=== PATIENT | female | born 1950 | race Caucasian/White ===

== ENCOUNTER 2017-07-28 21:00 | Emergency (ER) | payer MEDICARE, BC ==
[2017-07-28 21:20] VITALS: BP 138/87
[2017-07-28] MEDS ORDERED: Sodium Chloride 0.9% 1,000 ML IV SCH (22:00)
--- NOTE | 2017-07-28 22:00 | EDM.PDOC ---
ED HPI GENERAL MEDICAL PROBLEM - General Chief Complaint: Chest Pain Stated Complaint: CHEST PAIN Time Seen by Provider: 07/28/17 21:37 Source of Information: Reports: Patient History Limitations: Reports: No Limitations - History of Present Illness INITIAL COMMENTS - FREE TEXT/NARRATIVE: The patient states that she has felt exhausted, along with left chest tightness for over 2 months. She has had sharp left chest pain, belching, decreased appetite, entire back pain, generalized weakness, lightheadedness, and frequent bowel movements over the past 2 days. She felt diaphoretic and anxious today. No recent fever. No recent dyspnea at rest, although she has had dyspnea on exertion for 2 months. She is not orthopneic. No recent cough. She has nausea when she belches, but has not had any emesis. No urinary symptoms. No recent rash. No prior similar symptoms. Of note, the patient has a history of a pulmonary embolus, is status post an IVC filter, and is on Xarelto. A hypercoagulable workup was negative. She states that her sister has an unnamed hypercoagulable condition, as well. The patient's PCP is Dr. Ortiz. Middle Chest Pain Score (Numeric/FACES): 4 - Related Data Allergies Allergy/AdvReac Type Severity Reaction Status Date / Time Cephalosporins Allergy Hives Verified 07/28/17 21:10 Sulfa (Sulfonamide Allergy Hives Verified 07/28/17 21:10 Antibiotics) Home Meds: Home Meds oxyCODONE HCl/Acetaminophen [Percocet 5-325 mg Tablet] 1 - 2 each PO Q4H PRN # 40 tablet 08/08/15 [Rx] Cyanocobalamin/FA/Pyridoxine [Folbic Tablet] 1 tab PO DAILY 07/28/17 [History] DULoxetine [Cymbalta] 60 mg PO DAILY 07/28/17 [History] Losartan [Cozaar] 50 mg PO DAILY 07/28/17 [History] Omeprazole 20 mg PO DAILY 07/28/17 [History] Propranolol [Inderal] 20 mg PO DAILY 07/28/17 [History] traZODone 50 mg PO BEDTIME 07/28/17 [History] Past Medical History HEENT History: Reports: Impaired Vision Cardiovascular History: Reports: Blood Clots/VTE/DVT, High Cholesterol, Hypertension Respiratory History: Reports: PE Gastrointestinal History: Reports: GERD 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: Musculoskeletal History: Reports: Arthritis, Back Pain, Chronic, Osteoporosis Neurological History: Reports: Migraines Psychiatric History: Reports: Anxiety, Depression Hematologic History: Reports: Other (See Below) (Hypercoagulopathy) - Infectious Disease History Infectious Disease History: Reports: Chicken Pox, Measles, Mumps, Shingles - Past Surgical History Cardiovascular Surgical History: Reports: Vascular Surgery (IVC filter 2004) GI Surgical History: Reports: Appendectomy, Colonoscopy, EGD Neurological Surgical History: Reports: Lumbar Spine (L4 kyphoplasty) Social & Family History - Family History Family Medical History: Noncontributory - Tobacco Use Smoking Status *Q: Never Smoker - Caffeine Use Caffeine Use: Reports: Soda - Recreational Drug Use Recreational Drug Use: No - Living Situation & Occupation Occupation: Employed ED ROS GENERAL - Review of Systems Review Of Systems: ROS reveals no pertinent complaints other than HPI. ED EXAM, GENERAL - Physical Exam Exam: See Below Exam Limited By: No Limitations General Appearance: Alert, WD/WN, No Apparent Distress Eye Exam: Bilateral Eye: Normal Inspection Ears: Normal External Exam, Hearing Grossly Normal Nose: Normal Inspection, No Blood Throat/Mouth: Normal Inspection, Normal Lips, Normal Voice, No Airway Compromise Head: Atraumatic, Normocephalic Neck: Normal Inspection, Full Range of Motion Respiratory/Chest: No Respiratory Distress, Lungs Clear, Normal Breath Sounds, No Accessory Muscle Use Cardiovascular: Normal Peripheral Pulses, Regular Rate, Rhythm, No Gallop, No JVD, No Murmur, No Rub Peripheral Pulses: 4+: Radial (L), Radial (R) GI/Abdominal: Normal Bowel Sounds, Soft, Non-Tender, No Organomegaly, No Distention, No Abnormal Bruit, No Mass (Female) Exam: Deferred Rectal (Female) Exam: Deferred Back Exam: Normal Inspection, Full Range of Motion, NT Extremities: Normal Inspection, Normal Range of Motion, No Pedal Edema, Normal Capillary Refill Neurological: Alert, Oriented, Normal Cognition, No Motor/Sensory Deficits Psychiatric: Normal Affect Skin Exam: Warm, Dry, Intact, Normal Color, No Rash EKG INTERPRETATION EKG Date: 07/28/17 Time: 21:46 Rhythm: NSR Rate (Beats/Min): 76 [place]: Normal P-Wave: Present QRS: Normal ST-T: Normal QT: Normal Comparison: NA - No Prior EKG Course - Vital Signs Last Recorded V/S: Last Vital Signs Temp 36.8 C 07/28/17 21:15 Pulse 77 07/28/17 21:15 Resp 16 07/28/17 21:15 BP 138/87 07/28/17 21:15 Pulse Ox 97 07/28/17 21:15 Orthostatic Blood Pressure [ 149/82 Standing] Orthostatic Blood Pressure [ 150/87 Sitting] Orthostatic Blood Pressure [ 137/76 Supine] - Orders/Labs/Meds Orders: Active Orders 24 hr Category Date Time Status EKG Documentation Completion [RC] STAT Care 07/28/17 21:45 Active Orthostatic Vital Signs [RC] STAT Care 07/28/17 21:56 Active Peripheral IV Care [RC] . DIRECTED Care 07/28/17 21:45 Active Ang Chest [CT] Stat Exams 07/28/17 21:55 Taken Chest 2V [CR] Stat Exams 07/28/17 21:53 Taken Peripheral IV Insertion Adult [OM.PC] Stat Oth 07/28/17 21:43 Ordered Labs: Laboratory Tests 07/28/17 07/28/17 07/28/17 Range/Units 22:00 22:00 22:00 WBC 4.12 (3.98-10.04) K/mm3 RBC 4.53 (3.98-5.22) M/mm3 Hgb 13.9 (11.2-15.7) gm/L Hct 42.7 (34.1-44.9) % MCV 94.3 (79.4-94.8) fl MCH 30.7 (25.6-32.2) pg MCHC 32.6 (32.2-35.5) g/dl RDW Std Deviation 46.8 H (36.4-46.3) fL Plt Count 141 L (182-369) K/mm3 MPV 8.2 L (9.4-12.3) fl Neutrophils % (Manual) 63 H (40-60) % Band Neutrophils % 0 (0-10) % Lymphocytes % (Manual) 30 (20-40) % Atypical Lymphs % 0 % Monocytes % (Manual) 6 (2-10) % Eosinophils % (Manual) 0 L (0.7-5.8) % Basophils % (Manual) 1 (0.1-1.2) Platelet Estimate Adequate RBC Morph Comment Normal Sodium 141 (136-145) mEq/L Potassium 3.5 (3.5-5.1) mEq/L Chloride 106 (98-107) mEq/L Carbon Dioxide 25 (21-32) mEq/L Anion Gap 12.5 (5-15) BUN 10 (7-18) mg/dL Creatinine 0.7 (0.55-1.02) mg/dL Est Cr Clr Drug Dosing 62.74 mL/min Estimated GFR (MDRD) > 60 (>60) mL/min BUN/Creatinine Ratio 14.3 (14-18) Glucose 123 H (80-115) mg/dL Calcium 8.4 L (8.5-10.1) mg/dL Magnesium 2.3 (1.8-2.4) mg/dl Total Bilirubin 0.3 (0.2-1.0) mg/dL AST 28 (15-37) U/L ALT 24 (14-59) U/L Alkaline Phosphatase 121 H (46-116) U/L Troponin I < 0.017 (0.00-0.056) ng/mL Total Protein 7.2 (6.4-8.2) g/dl Albumin 3.7 (3.4-5.0) g/dl Globulin 3.5 gm/dL Albumin/Globulin Ratio 1.1 (1-2) TSH 3rd Generation 1.889 (0.358-3.74) uIU/mL Urine Color (Yellow) Urine Appearance (Clear) Urine pH (5.0-8.0) Ur Specific [place] (1.005-1.030) Urine Protein (Negative) Urine Glucose (UA) (Negative) Urine Ketones (Negative) Urine Occult Blood (Negative) Urine Nitrite (Negative) Urine Bilirubin (Negative) Urine Urobilinogen (0.2-1.0) Ur Leukocyte Esterase (Negative) Urine RBC (0-5) /hpf Urine WBC (0-5) /hpf Ur Epithelial Cells (0-5) /hpf Urine Bacteria (FEW) /hpf Urine Mucus (FEW) /hpf 07/28/ Range/Units 23:25 WBC (3.98-10.04) K/mm3 RBC (3.98-5.22) M/mm3 Hgb (11.2-15.7) gm/L Hct (34.1-44.9) % MCV (79.4-94.8) fl MCH (25.6-32.2) pg MCHC (32.2-35.5) g/dl RDW Std Deviation (36.4-46.3) fL Plt Count (182-369) K/mm3 MPV (9.4-12.3) fl Neutrophils % (Manual) (40-60) % Band Neutrophils % (0-10) % Lymphocytes % (Manual) (20-40) % Atypical Lymphs % % Monocytes % (Manual) (2-10) % Eosinophils % (Manual) (0.7-5.8) % Basophils % (Manual) (0.1-1.2) Platelet Estimate RBC Morph Comment Sodium (136-145) mEq/L Potassium (3.5-5.1) mEq/L Chloride (98-107) mEq/L Carbon Dioxide (21-32) mEq/L Anion Gap (5-15) BUN (7-18) mg/dL Creatinine (0.55-1.02) mg/dL Est Cr Clr Drug Dosing mL/min Estimated GFR (MDRD) (>60) mL/min BUN/Creatinine Ratio (14-18) Glucose (80-115) mg/dL Calcium (8.5-10.1) mg/dL Magnesium (1.8-2.4) mg/dl Total Bilirubin (0.2-1.0) mg/dL AST (15-37) U/L ALT (14-59) U/L Alkaline Phosphatase (46-116) U/L Troponin I (0.00-0.056) ng/mL Total Protein (6.4-8.2) g/dl Albumin (3.4-5.0) g/dl Globulin gm/dL Albumin/Globulin Ratio (1-2) TSH 3rd Generation (0.358-3.74) uIU/mL Urine Color Yellow (Yellow) Urine Appearance Clear (Clear) Urine pH 5.5 (5.0-8.0) Ur Specific [place] 1.010 (1.005-1.030) Urine Protein Trace H (Negative) Urine Glucose (UA) Negative (Negative) Urine Ketones Negative (Negative) Urine Occult Blood Negative (Negative) Urine Nitrite Negative (Negative) Urine Bilirubin Negative (Negative) Urine Urobilinogen 0.2 (0.2-1.0) Ur Leukocyte Esterase Negative (Negative) Urine RBC 0-5 (0-5) /hpf Urine WBC 0-5 (0-5) /hpf Ur Epithelial Cells 0-5 (0-5) /hpf Urine Bacteria Rare (FEW) /hpf Urine Mucus Many H (FEW) /hpf Meds: Medications Discontinued Medications Generic Name Dose Route Start Last Admin Trade Name Freq PRN Reason Stop Dose Admin Sodium Chloride 1,000 mls @ 150 mls/hr 07/28/17 22:00 07/28/17 22:05 Normal Saline IV 150 mls/hr ASDIRECTED YENIFER Administration Sodium Chloride 100 mls @ 75 mls/hr 07/28/17 22:30 Normal Saline IV ASDIRECTED YENIFER Iopamidol 100 ml 07/28/17 22:23 07/28/17 22:45 Isovue-370 (76%) IVPUSH 07/28/17 22:24 100 ml ONETIME ONE Administration Sodium Chloride 10 ml 07/28/17 21:43 07/28/17 22:45 Saline Flush FLUSH 10 ml ASDIRECTED PRN Administration Keep Vein Open - Re-Assessments/Exams Free Text/Narrative Re-Assessment/Exam: 07/29/17 00:01 Two-view chest radiograph appears to be grossly normal. Cardiac silhouette is within normal limits. No pulmonary vascular congestion. No pleural effusions. No focal infiltrate. No pneumothorax. Formal read per the Radiologist pending. 07/29/17 00:01 The patient is not orthostatic. 07/29/17 00:19 Because the patient is on Xarelto, a low D-dimer would not exclude a pulmonary embolus in the rare event of Xarelto failure. Because of revascularization, patients can develop pulmonary emboli despite the presence of an IVC filter. I therefore ordered a CT angiogram of the chest to rule out PE. CT angiogram of the chest is read by [facility] as: 1. No central or segmental pulmonary embolus. 2. Pulmonary arterial hypertension. 3. Moderate size hiatal hernia. 07/29/17 00:23 Test results discussed with the patient. Tonight's workup is unremarkable and does not explain the patient's symptoms, however, potential causes of her symptoms including infection, anemia, electrolyte abnormalities, liver disease, recent MO, pneumonia, pneumothorax, dysrhythmias, urinary tract infection, pulmonary embolus, intravascular depletion, or hypothyroidism have all been ruled out. I will have the patient follow-up with Dr. Ortiz for further evaluation. Departure - Departure Time of Disposition: 00:25 Disposition: Home, Self-Care 01 Condition: Good Clinical Impression: Fatigue, Chest tightness, Decreased appetite, Lightheadedness, Eructation - Discharge Information Referrals: Deepak Jeong MD [Primary Care Provider] - Forms: ED Department Discharge Additional Instructions: You were seen in the emergency room for 2 months of generalized exhaustion and chest tightness, along with 2 days of sharp left chest pain, belching, decreased appetite, back pain, generalized weakness, lightheadedness, and frequent bowel movements. Workup in the ER included blood work, a urinalysis, positional blood pressure checks, a chest x-ray, a CT angiogram of her chest, and an ECG. Your entire workup was negative, and does not explain the cause of your symptoms. We recommend that you follow-up with your PCP, Dr. Ortiz, for further evaluation. If any other problems, please do not hesitate to return to the ER. - My Orders Last 24 Hours: My Active Orders 07/28/17 21:43 Peripheral IV Insertion Adult [OM.PC] Stat 07/28/17 21:45 EKG Documentation Completion [RC] STAT Peripheral IV Care [RC] . DIRECTED 07/28/17 21:53 Chest 2V [CR] Stat 07/28/17 21:55 Ang Chest [CT] Stat 07/28/17 21:56 Orthostatic Vital Signs [RC] STAT - Assessment/Plan Last 24 Hours: My Active Orders 07/28/17 21:43 Peripheral IV Insertion Adult [OM.PC] Stat 07/28/17 21:45 EKG Documentation Completion [RC] STAT Peripheral IV Care [RC] . DIRECTED 07/28/17 21:53 Chest 2V [CR] Stat 07/28/17 21:55 Ang Chest [CT] Stat 07/28/17 21:56 Orthostatic Vital Signs [RC] STAT
[2017-07-28] MEDS: Sodium Chloride 0.9% 10 ML Syringe FLUSH PRN ×2 (22:04→22:45)
[2017-07-28] MEDS ORDERED: Iopamidol 755 Mg/ML 100 ML Bottle IVPUSH ONE (22:23)
[2017-07-28] MEDS ORDERED: Sodium Chloride 0.9% 100 ML IV SCH (22:30)
--- NOTE | 2017-07-29 09:33 | CT ---
CT chest Technique: Multiple axial sections through the chest were obtained. Intravenous contrast was utilized. Study performed as a pulmonary angiogram protocol. Findings: Main pulmonary arteries are slightly prominent. No filling defects are seen to indicate pulmonary embolism. Mediastinum and hilar regions show no adenopathy or mass. Moderately severe coronary artery calcification is seen. Moderately large hiatal hernia is noted. Small low-density lesion identified within the upper right lobe of the liver most likely representing a small liver cyst measuring about 9 mm. Additional low density lesion is seen more anteriorly within the upper liver compatible with additional liver cyst measuring 9 mm. No axillary adenopathy is seen. Minimal scarring and atelectasis is seen within both lung bases. No acute parenchymal change is seen. Bone window settings were reviewed which appear within normal limits for the patient's age. Incidental note of inferior vena cava filter. Impression: 1. Enlarged pulmonary arteries most likely representing a variant of so-called pulmonary arterial hypertension. 2. No findings of pulmonary embolism. 3. Other incidental findings as noted above. Diagnostic code #2 I agree with preliminary report issued by [facility] ([facility] preliminary report dictated on 07/29/17, 1:01 AM Central Time)
--- NOTE | 2017-07-29 09:33 | CR ---
Chest: Two views of the chest were obtained. Comparison: Prior chest x-ray of 08/10/12. Heart size is normal. Small hiatal hernia is noted. Lungs are clear with no acute parenchymal change. Bony structures appear within normal limits for the patient's age. Incidental note of minimal scoliosis. Impression: 1. Incidental findings. Nothing acute is seen on two-view chest x-ray. Diagnostic code #2
== END 2017-07-29 00:34 | disposition home or self-care (01) ==
LOC: JD.ED 21:00
DX: R07.89 Other chest pain (principal); R53.83 Other fatigue; R42 Dizziness and giddiness; R14.2 Eructation; R63.0 Anorexia; E78.00 Pure hypercholesterolemia, unspecified; I10 Essential (primary) hypertension; Z88.2 Allergy status to sulfonamides; Z88.1 Allergy status to other antibiotic agents; Z79.899 Other long term (current) drug therapy
CPT/HCPCS: 36415; 71046; 71275; 80053; 81001; 83735; 84443; 84484; 85025; 93005; 96360; 96361; 99285; J7040; J7050; Q9967; 93010; 99284-25

== ENCOUNTER 2017-11-22 14:37 | Emergency (ER) | payer OTHER, MEDICARE, BC ==
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
[2017-11-22 15:17] VITALS: BP 115/82
== END 2017-11-22 15:16 | disposition home or self-care (01) ==
LOC: JD.ED 14:37
DX: S70.11XA Contusion of right thigh, initial encounter (principal); S50.811A Abrasion of right forearm, initial encounter; I10 Essential (primary) hypertension; Z88.1 Allergy status to other antibiotic agents; Z88.2 Allergy status to sulfonamides; V57.5XXA Driver of pick-up truck or van injured in collision with fixed or stationary object in traffic accident, initial encounter; Y92.59 Other trade areas as the place of occurrence of the external cause
CPT/HCPCS: 99284

== ENCOUNTER 2020-11-29 07:08 | Day surgery (SDC) | payer MEDICARE, BC ==
[~2020-11-29 07:08] MED LIST: Clindamycin Phosphate in D5W 900 MG in Premix Bag 1 BAG IV SCH; DEXTROSE 5% IV SCH; GENTAMICIN IV SCH; Lactated Ringers 1,000 ML IV SCH; Lidocaine 1% 4 ML ONE; Lidocaine 1%/Sod Bicarbonate in NS 8.4% 1 ML Syringe IDERM PRN; Midazolam 1 MG/ML 2 ML SDV ONE; Ondansetron 4 MG/2 ML SDV ONE; Propofol 200 MG/20 ML SDV ONE; Rocuronium 50 MG/5 ML Vial ONE; Sodium Chloride 0.9% 10 ML Syringe FLUSH PRN; WATER IV SCH; fentaNYL 250 MCG/5 ML SDV ONE
[2020-11-29] MEDS ORDERED: Sodium Chloride 0.9% 50 ML SDV ONE (07:11)
[2020-11-29] MEDS ORDERED: Lidocaine 1% with EPINEPHrine 1:100,000 10 ML MDV ONE (07:11)
[2020-11-29] MEDS ORDERED: Bupivacaine 0.5% 30 ML SDV ONE (07:11)
--- NOTE | 2020-11-29 07:34 | PCM.PREANE ---
Preanesthetic Assessment - Procedure Proposed Procedure: lap assisted vag hyst with bs - Anesthesia/Transfusion/Family Hx Anesthesia History: Prior Anesthesia Without Reaction Family History of Anesthesia Reaction: No Transfusion History: Prior Transfusion Without Reaction - Review of Systems General: No Symptoms Pulmonary: Cough (chronic cough) Cardiovascular: No Symptoms Gastrointestinal: No Symptoms Neurological: No Symptoms Other: Reports: Diabetes (pre) - Physical Assessment NPO Status Date: 11/28/20 NPO Status Time: 19:30 Vital Signs: 122/68 60 97% 17 98.1 Height: 5 ft 3 in Weight: 72.121 kg ASA Class: 3 Mental Status: Alert & Oriented x3 Airway Class: Mallampati = 1 Dentition: Reports: Normal Dentition Thyro-Mental Finger Breadths: 3 Mouth Opening Finger Breadths: 3 ROM/Head Extension: Full Lungs: Clear to Auscultation, Normal Respiratory Effort Cardiovascular: Regular Rate, Regular Rhythm - Allergies Allergies/Adverse Reactions: Allergies Allergy/AdvReac Type Severity Reaction Status Date / Time Cephalosporins Allergy Hives Verified 11/28/20 16:05 cyclobenzaprine Allergy Hives Verified 11/28/20 16:05 [From Flexeril] Sulfa (Sulfonamide Allergy Hives Verified 11/28/20 16:05 Antibiotics) - Blood Blood Available: Yes - Anesthesia Plan Beta Yrn: Propranolol Med Last Dose Date: 11/28/20 Med Last Dose Time: 20:30 - Acknowledgements Anesthesia Type Planned: General Anesthesia Pt an Appropriate Candidate for the Planned Anesthesia: Yes Alternatives and Risks of Anesthesia Discussed w Pt/Guardian: Yes Pt/Guardian Understands and Agrees with Anesthesia Plan: Yes PreAnesthesia Questionnaire HEENT History: Reports: Impaired Vision, Other (See Below) Other HEENT History: WEARS GLASSES, HAS PERMANENT PARTIAL Cardiovascular History: Reports: Blood Clots/VTE/DVT, Heart Failure, High Cholesterol, Hypertension, Other (See Below) Other Cardiovascular History: EDEMA Respiratory History: Reports: PE, Other (See Below) Other Respiratory History: COUGH Gastrointestinal History: Reports: GERD, Other (See Below) Other Gastrointestinal History: ELEVATED ALKALINE PHOSPHATE, BLOATING, ABDOMINAL PAIN Genitourinary History: Reports: None PIE ICER MACHINE History: Reports: , Other (See Below) Other OB/BYN History: POSTMENOPAUSAL BLEEDING, VAGINAL ATROPHY,DISCHARGE, VULVAR ITCHING/PURITIS, RIGHT OOPHORECTOMY Musculoskeletal History: Reports: Arthritis, Back Pain, Chronic, Osteoarthritis, Osteoporosis Neurological History: Reports: Migraines (rare) Psychiatric History: Reports: Anxiety, Depression Other Psychiatric History: Eating dissorder Endocrine/Metabolic History: Reports: Diabetes, Type II Hematologic History: Reports: Anticoagulation Therapy Immunologic History: Reports: None Oncologic (Cancer) History: Reports: None - Infectious Disease History Infectious Disease History: Reports: Chicken Pox, Measles, Mumps, Shingles - Past Surgical History Head Surgeries/Procedures: Reports: None Cardiovascular Surgical History: Reports: Varicose, Vascular Surgery Other Cardiovascular Surgeries/Procedures: IVF placement Respiratory Surgical History: Reports: None GI Surgical History: Reports: Appendectomy, Colonoscopy, EGD Female Surgical History: Reports: Oophorectomy, Salpingo-Oophorectomy Male Surgical History: Reports: None Endocrine Surgical History: Reports: None Neurological Surgical History: Reports: Lumbar Spine, Other (See Below) Other Neurological Surgeries/Procedures: L4 KYPHOPLASTY Musculoskeletal Surgical History: Reports: Other (See Below) Other Musculoskeletal Surgeries/Procedures:: Back surgery, RIGHT WRIST SURGERY Oncologic Surgical History: Reports: None Dermatological Surgical History: Reports: None - SUBSTANCE USE Tobacco Use Status *Q: Never Tobacco User Tobacco Use Within Last Twelve Months: No Second Hand Smoke Exposure: No Days Per Week of Alcohol Use: 0 Recreational Drug Use History: No - HOME MEDS Home Medications: Home Meds Cholecalciferol (Vitamin D3) [Vitamin D3] 6,000 unit PO DAILY 11/28/20 [History] Clobetasol [Temovate 0.05% Oint] 1 dose TOP ASDIRECTED PRN 11/28/20 [History] DULoxetine [Cymbalta] 60 mg PO DAILY 11/28/20 [History] Denosumab [Prolia] 1 dose SQ ASDIRECTED 11/28/20 [History] Hydrocodone/Acetaminophen [HYDROcodone-Acetaminophen 7.5-325 MG] 1 tab PO DAILY PRN 11/28/20 [History] Multivitamin 1 tab PO DAILY 11/28/20 [History] Omeprazole 40 mg PO DAILY 11/28/20 [History] Rivaroxaban [Xarelto] 20 mg PO DAILY 11/28/20 [History] SUMAtriptan [Imitrex] 50 mg PO ASDIRECTED PRN 11/28/20 [History] amLODIPine [Norvasc] 5 mg PO DAILY 11/28/20 [History] traZODone 100 mg PO BEDTIME 11/28/20 [History] - CURRENT (IN HOUSE) MEDS Current Meds: Current Medications Lactated Ringer's (Ringers, Lactated) 1,000 mls @ 125 mls/hr IV ASDIRECTED YENIFER Stop: 11/29/20 23:00 Clindamycin Phosphate 900 mg/ (Premix) 50 mls @ 100 mls/hr IV ONETIME YENIFER Stop: 11/29/20 10:00 Gentamicin Sulfate 360 mg/ (Dextrose/Water) 109 mls @ 109 mls/hr IV ONETIME YENIFER Stop: 11/29/20 10:00 Lidocaine/Sodium Bicarbonate (Lidocaine 1%/Sod Bicarbonate In Ns 8.4% 1 Ml Syringe) 0.25 ml IDERM ONETIME PRN PRN Reason: Prior to IV Start Stop: 11/29/20 18:00 Sodium Chloride (Sodium Chloride 0.9% 10 Ml Syringe) 10 ml FLUSH ASDIRECTED PRN PRN Reason: Keep Vein Open Stop: 11/29/20 18:00 Discontinued Medications Bupivacaine HCl (Bupivacaine 0.5% 30 Ml Sdv) Confirm Administered Dose 30 ml .ROUTE .STK-MED ONE Stop: 11/29/20 07:12 Fentanyl (Fentanyl 250 Mcg/5 Ml Sdv) Confirm Administered Dose 250 mcg .ROUTE .STK-MED ONE Stop: 11/29/20 07:04 Lidocaine HCl (Xylocaine-Mpf 1%) Confirm Administered Dose 4 mls @ as directed .ROUTE .STK-MED ONE Stop: 11/29/20 07:03 Lidocaine/Epinephrine (Lidocaine 1% With Epinephrine 1:100,000 10 Ml Mdv) Confirm Administered Dose 10 ml .ROUTE .STK-MED ONE Stop: 11/29/20 07:12 Midazolam HCl (Midazolam 1 Mg/Ml 2 Ml Sdv) Confirm Administered Dose 2 mg .ROUTE .STK-MED ONE Stop: 11/29/20 07:04 Ondansetron HCl (Ondansetron 4 Mg/2 Ml Sdv) Confirm Administered Dose 4 mg .ROUTE .STK-MED ONE Stop: 11/29/20 07:03 Propofol (Propofol 200 Mg/20 Ml Sdv) Confirm Administered Dose 200 mg .ROUTE .STK-MED ONE Stop: 11/29/20 07:03 Rocuronium [place] (Rocuronium 50 Mg/5 Ml Vial) Confirm Administered Dose 50 mg .ROUTE .STK-MED ONE Stop: 11/29/20 07:03 Sodium Chloride (Sodium Chloride 0.9% 50 Ml Sdv) Confirm Administered Dose 50 ml .ROUTE .STK-MED ONE Stop: 11/29/20 07:12
[2020-11-29] MEDS ORDERED: Dexamethasone 4 MG/ML 5 ML MDV ONE (08:10)
[2020-11-29] MEDS ORDERED: HYDROmorphone 0.5 MG/0.5 ML Syringe IVPUSH PRN (08:22)
[2020-11-29] MEDS ORDERED: fentaNYL 100 MCG/2 ML SDV IVPUSH PRN (08:22)
[2020-11-29] MEDS ORDERED: Ondansetron 4 MG/2 ML SDV IVPUSH PRN ×2 (08:22→09:01)
[2020-11-29] MEDS ORDERED: Ketamine 500 mg/10 ML MDV ONE (08:24)
[2020-11-29] MEDS ORDERED: HYDROmorphone 0.5 MG/0.5 ML Syringe ONE (08:33)
[2020-11-29] MEDS ORDERED: Ketorolac 15 MG/ML SDV ONE (08:46)
[2020-11-29] MEDS ORDERED: Lactated Ringers 1,000 ML ONE (08:55)
[2020-11-29] MEDS ORDERED: oxyCODONE 5 MG Tab PO PRN (09:01)
[2020-11-29] MEDS ORDERED: Acetaminophen 325 MG Tab PO PRN (09:01)
--- NOTE | 2020-11-29 09:09 | PCM.OPNOTE ---
- General Post-Op/Procedure Note Date of Surgery/Procedure: 11/29/20 Operative Procedure(s): Total vaginal hysterectomy with left salpingo- oophorectomy Findings: Uterus is very small. Right ovary and fallopian tube are surgically absent. Left fallopian tube was atrophic as was the left ovary. Vaginal atrophy also noted. Caliber of the vagina was adequate to allow for vaginal approach only for hysterectomy and left salpingo-oophorectomy. Pre Op Diagnosis: Postmenopausal uterine bleeding Post-Op Diagnosis: Same Anesthesia Technique: General ET Tube Other Anesthesia Type: Lidocaine quarter percent with [id number] cclocal Primary Surgeon: Otto Sheehan Secondary Surgeon: Aide Hoyos Anesthesia Provider: Elvia Shearer Reason Lmsw Was Necessary: Retraction, assistance, patient safety, quality of care. Pathology: Uterus, left tube and ovary in 1 specimen container. Fluid Replacement, Intraop: 800 EBL in mLs: 25 Complications: None Condition: Good Free Text/Narrative:: Surgery duration: 29 minutes Procedure: The patient was placed in supine position on the operating table. She received 900 mg of clindamycin and 360 mg of gentamicin for preoperative antibiotic prophylaxis. She then underwent general endotracheal anesthesia. After positioning, and adequate prep and drape, the procedure was then p erformed. Sterile speculum was placed in the vagina and cervix was visualized. Cervix was injected with lidocaine quarter percent with epinephrine-10 mL used. A full circumference incision was made in the cervical epithelium. The bladder was pushed well back off cervix. Posterior cul-de-sac was then entered sharply without problems. Left uterosacral was crossclamped with a Enseal vessel closure system. The left uterosacral and then the right uterosacral ligament pedicles were developed using the Enseal system. The anterior cul-de-sac was then entered without problems and the uterine vasculature, cardinal ligament and broad ligament then developed using Enseal vessel closure system. The uterus was inverted at this time and upper broad ligament fallopian tube pedicles were crossclamped with Melia clamps. Specimen was totally removed. Both these pedicles were then secured with the Enseal closure system. Left fallopian tube was normal but atrophic in appearance relative to patient's postmenopausal status. Using Enseal vessel closure system the tube was then removed and sent with the specimen. Right ovary was removed separately in the same fashion. The right ovary and tube were surgically absent. The patient was found to be hemostatically intact at this time. Vaginal cuff was sutured for hemostatic reasons with a running locked suture of 0 Monocryl from the 2 o'clock position to the 10 o'clock position posteriorly. Vaginal cuff was then closed from right to left side with a running locked suture of 0 Monocryl. Patient was returned to supine position and awakened from general endotracheal anesthesia. She tolerated the procedure and left the operating room in satisfactory condition.
--- NOTE | 2020-11-29 09:18 | PCM.POSTAN ---
POST ANESTHESIA ASSESSMENT - MENTAL STATUS Mental Status: Alert, Oriented - VITAL SIGNS Vital Signs: Last Vital Signs Temp 98.1 F 11/29/20 07:15 Pulse 60 11/29/20 07:15 Resp 17 11/29/20 07:15 BP 122/68 11/29/20 07:15 Pulse Ox 97 11/29/20 07:15 0909 126/72 72 10 97.0 95% - RESPIRATORY Respiratory Status: Respiratory Rate WNL, Airway Patent, O2 Saturation Stable, Supplemental Oxygen - CARDIOVASCULAR CV Status: Pulse Rate WNL, Blood Pressure Stable - GASTROINTESTINAL GI Status: No Symptoms - PAIN Pain Score: 0 (denies) - POST OP HYDRATION Hydration Status: Adequate & Stable
--- NOTE | 2020-11-29 11:58 | PCM48HPAN ---
Post Anesthesia Note - EVALUATION WITHIN 48HRS OF ANESTHETIC Vital Signs in Normal Range: Yes Patient Participated in Evaluation: Yes Respiratory Function Stable: Yes Airway Patent: Yes Cardiovascular Function Stable: Yes Hydration Status Stable: Yes Pain Control Satisfactory: Yes Nausea and Vomiting Control Satisfactory: Yes Mental Status Recovered: Yes Vital Signs: Last Vital Signs Temp 97.2 F 11/29/20 09:35 Pulse 59 L 11/29/20 10:00 Resp 11 L 11/29/20 10:00 BP 123/76 11/29/20 10:00 Pulse Ox 99 11/29/20 10:00 - COMMENTS/OBSERVATIONS Free Text/Narrative:: Sitting up in bed with famly.Eating crackers . minimal pain. no nausea
[2020-11-29 13:14] VITALS: BP 116/94; PULSE 65
== END 2020-11-29 12:15 | disposition home or self-care (01) ==
LOC: JD.SDS 07:08
PROVIDERS: ATTEND Obstetrics & Gynecology
DX: N88.8 Other specified noninflammatory disorders of cervix uteri (principal); N95.0 Postmenopausal bleeding; I11.0 Hypertensive heart disease with heart failure; I50.9 Heart failure, unspecified; E78.5 Hyperlipidemia, unspecified; E11.9 Type 2 diabetes mellitus without complications; Z88.2 Allergy status to sulfonamides; Z88.1 Allergy status to other antibiotic agents; Z79.899 Other long term (current) drug therapy
CPT/HCPCS: 36415; 58262; 82947; 86850; 86900; 86901; 88307; A9270; J1100; J1170; J1580; J1885; J2250; J2405; J2704; J2710; J3010; J3490; J7120; 00944; 99100

== ENCOUNTER 2022-06-21 10:01 | Emergency (ER) | payer MEDICARE, BC ==
[2022-06-21] MEDS ORDERED: Sodium Chloride 0.9% 1,000 ML IV ONE (10:48)
[2022-06-21] MEDS ORDERED: Ondansetron 4 MG/2 ML SDV IVPUSH ONE (11:18)
[2022-06-21] MEDS ORDERED: Ketorolac 30 MG/ML SDV IVPUSH ONE (11:18)
[2022-06-21] MEDS ORDERED: HYDROmorphone 0.5 MG/0.5 ML Syringe IVPUSH ONE ×2 (11:18→12:15)
[2022-06-21] MEDS ORDERED: diphenhydrAMINE 50 MG/ML SDV IVPUSH ONE (11:19)
[2022-06-21] MEDS ORDERED: Metoclopramide 10 MG/2 ML SDV IVPUSH ONE (12:15)
[2022-06-21] MEDS ORDERED: Dexamethasone 10 MG/ML SDV IVPUSH ONE (12:21)
[2022-06-21] MEDS ORDERED: Acetaminophen 325 MG Tab PO ONE (12:22)
[2022-06-21 13:44] VITALS: BP 118/80; PULSE 65
== END 2022-06-21 13:40 | disposition home or self-care (01) ==
LOC: JD.ED 10:01
DX: G43.909 Migraine, unspecified, not intractable, without status migrainosus (principal); I11.0 Hypertensive heart disease with heart failure; I50.9 Heart failure, unspecified; K21.9 Gastro-esophageal reflux disease without esophagitis; M19.90 Unspecified osteoarthritis, unspecified site; E11.9 Type 2 diabetes mellitus without complications; Z86.711 Personal history of pulmonary embolism; Z79.01 Long term (current) use of anticoagulants; Z79.899 Other long term (current) drug therapy; Z88.1 Allergy status to other antibiotic agents; Z88.2 Allergy status to sulfonamides
CPT/HCPCS: 36415; 80053; 85025; 96361; 96374; 96375; 96376; 99283-25; 99284; A9270-GY; J1100; J1170; J1200; J1885; J2405; J2765; J7030

== ENCOUNTER 2023-04-22 16:59 | Emergency (ER) | payer MEDICARE, BC | END 2023-04-22 17:55 | disposition left against medical advice (07) | LOC: JD.ED 16:59 | DX: Z53.21 Procedure and treatment not carried out due to patient leaving prior to being seen by health care provider (principal) ==

== ENCOUNTER 2023-05-07 11:15 | Emergency (ER) | payer MEDICARE, BC ==
[2023-05-07] MEDS ORDERED: Sodium Chloride 0.9% 10 ML Syringe FLUSH PRN (11:37)
[2023-05-07 12:15] LABS: BASOPHILS PERCENT AUTO 0.8 % (0.0-1.0); EOSINOPHILS ABSOLUTE AUTO 0.1 K/mm3 (0.0-0.4); EOSINOPHILS PERCENT AUTO 1.7 % (0.0-6.0); IMMATURE GRAN ABSOLUTE AUTO 0.01 K/mm3 (0.00-0.05); IMMATURE GRAN PERCENT AUTO 0.2 % (0.0-0.4); LYMPHOCYTES ABSOLUTE AUTO 1.2 K/mm3 (1.0-4.8); LYMPHOCYTES PERCENT AUTO 25.4 % (24.0-44.0); MEAN CORPUSCULAR HEMOGLOBIN 28.1 pg (28.0-32.0); MEAN CORPUSCULAR HGB CONC 30.3 g/dl (32.0-36.0); MEAN CORPUSCULAR VOLUME 92.8 fl (83.0-99.0); MEAN PLATELET VOLUME 9.6 fl (9.4-12.3); MONOCYTES ABSOLUTE AUTO 0.5 K/mm3 (0.0-0.8); MONOCYTES PERCENT AUTO 10.9 % (0.0-8.0); NEUTROPHILS ABSOLUTE AUTO 2.9 K/mm3 (1.8-7.7); PLATELET COUNT,PLT 237 K/mm3 (150-400); RED BLOOD CELL COUNT 3.34 M/mm3 (4.10-5.30); WHITE BLOOD CELL COUNT,WBC 4.77 K/mm3 (3.9-11.3)
[2023-05-07 12:39] LABS: A/G RATIO 0.9 (1-2); ALBUMIN 3.3 g/dl (3.4-5.0); ANION GAP 13.4 (5-15); BILIRUBIN TOTAL 0.3 mg/dL (0.2-1.0); CALCIUM 9.3 mg/dL (8.5-10.1); EST CRCL DRUG DOSING (CG) 39.04 mL/min; POTASSIUM,K 4.4 mEq/L (3.5-5.1); PROTEIN TOTAL,TP 6.9 g/dl (6.4-8.2)
[2023-05-07 12:48] LABS: CORONAVIRUS COVID-19 NAA NEGATIVE (NEGATIVE); INFLUENZA A NAA NEGATIVE (NEGATIVE); RESPIRATORY SYNCYTIAL VIR NAA NEGATIVE (NEGATIVE)
[2023-05-07 12:56] LABS: HEMOGLOBIN 9.4 gm/dl (12.0-16.0)
[2023-05-07 14:20] LABS: APPEARANCE,URINE CLOUDY (Clear); BILIRUBIN,URINE NEGATIVE (Negative); COLOR,URINE YELLOW (Yellow); GLUCOSE,URINE NEGATIVE (Negative); KETONES,URINE NEGATIVE (Negative); LEUKOCYTE ESTERASE,URINE NEGATIVE (Negative); NITRITE,URINE NEGATIVE (Negative); OCCULT BLOOD,URINE NEGATIVE (Negative); PH,URINE 8.5 (5.0-8.0); PROTEIN,URINE NEGATIVE (Negative); UROBILINOGEN,URINE 0.2 (0.2-1.0)
[2023-05-07 14:37] LABS: AMORPHOUS SEDIMENT,URINE FEW /hpf (NOT SEEN); BACTERIA,URINE MODERATE /hpf (FEW); MUCUS,URINE FEW /hpf (FEW); RBC,URINE 0-5 /hpf (0-5); WBC,URINE 0-5 /hpf (0-5)
[2023-05-07 14:59] VITALS: BP 140/87; PULSE 77
== END 2023-05-07 14:55 | disposition home or self-care (01) ==
LOC: JD.ED 11:15
DX: R53.83 Other fatigue (principal); D50.0 Iron deficiency anemia secondary to blood loss (chronic); K21.9 Gastro-esophageal reflux disease without esophagitis; I11.0 Hypertensive heart disease with heart failure; I50.9 Heart failure, unspecified; E11.9 Type 2 diabetes mellitus without complications; Z20.822 Contact with and (suspected) exposure to COVID-19; Z79.02 Long term (current) use of antithrombotics/antiplatelets; Z79.899 Other long term (current) drug therapy; Z88.2 Allergy status to sulfonamides; Z88.1 Allergy status to other antibiotic agents; Z88.8 Allergy status to other drugs, medicaments and biological substances
CPT/HCPCS: 0241U; 36415; 80053; 81001; 85025; 86850; 86900; 86901; 99284; J3490

== ENCOUNTER 2023-05-12 21:12 | Emergency (ER) | payer MEDICARE, BC ==
[2023-05-12] MEDS ORDERED: Sodium Chloride 0.9% 10 ML Syringe FLUSH PRN (21:31)
[2023-05-12] MEDS ORDERED: Morphine 4 MG/ML Syringe IVPUSH ONE ×2 (21:32→22:40)
[2023-05-12] MEDS ORDERED: Sodium Chloride 0.9% 1,000 ML IV ONE ×2 (21:35→23:12)
[2023-05-12] MEDS ORDERED: Iopamidol 612 MG/ML 100 ML Bottle IVPUSH ONE (21:38)
[2023-05-12] MEDS ORDERED: Sodium Chloride 0.9% 10 ML Syringe FLUSH ONE (21:38)
[2023-05-12 22:00] LABS: BASOPHILS PERCENT AUTO 0.3 % (0.0-1.0); EOSINOPHILS ABSOLUTE AUTO 0.1 K/mm3 (0.0-0.4); EOSINOPHILS PERCENT AUTO 0.6 % (0.0-6.0); HEMATOCRIT 37.8 % (37.0-47.0); HEMOGLOBIN 11.6 gm/dl (12.0-16.0); IMMATURE GRAN ABSOLUTE AUTO 0.03 K/mm3 (0.00-0.05); IMMATURE GRAN PERCENT AUTO 0.3 % (0.0-0.4); LYMPHOCYTES ABSOLUTE AUTO 0.4 K/mm3 (1.0-4.8); LYMPHOCYTES PERCENT AUTO 3.5 % (24.0-44.0); MEAN CORPUSCULAR HEMOGLOBIN 28.8 pg (28.0-32.0); MEAN CORPUSCULAR HGB CONC 30.7 g/dl (32.0-36.0); MEAN CORPUSCULAR VOLUME 93.8 fl (83.0-99.0); MEAN PLATELET VOLUME 8.9 fl (9.4-12.3); MONOCYTES ABSOLUTE AUTO 0.4 K/mm3 (0.0-0.8); MONOCYTES PERCENT AUTO 3.7 % (0.0-8.0); NEUTROPHILS ABSOLUTE AUTO 9.6 K/mm3 (1.8-7.7); NEUTROPHILS PERCENT AUTO 91.6 % (41.0-71.0); PLATELET COUNT,PLT 213 K/mm3 (150-400); RED BLOOD CELL COUNT 4.03 M/mm3 (4.10-5.30); WHITE BLOOD CELL COUNT,WBC 10.52 K/mm3 (3.9-11.3)
[2023-05-12 22:22] LABS: A/G RATIO 0.9 (1-2); ALANINE AMINOTRANSFERASE,ALT 46 U/L (14-59); ALBUMIN 3.8 g/dl (3.4-5.0); ALKALINE PHOSPHATASE 85 U/L (46-116); ANION GAP 23.2 (5-15); ASPARTATE AMNIOTRANSFERASE,AST 37 U/L (15-37); BILIRUBIN TOTAL 0.6 mg/dL (0.2-1.0); BLOOD UREA NITROGEN,BUN 16 mg/dL (7-18); BUN/CREATININE RATIO 13.3 (14-18); C-REACTIVE PROTEIN <0.2 mg/dL (<1.0); CALCIUM 9.6 mg/dL (8.5-10.1); CARBON DIOXIDE,CO2 20 mEq/L (21-32); CHLORIDE,CL 103 mEq/L (98-107); CREATININE 1.2 mg/dL (0.55-1.02); EST CRCL DRUG DOSING (CG) 32.53 mL/min; ESTIMATED GFR 48 mL/min (>60); GLUCOSE RANDOM 205 mg/dL (70-99); POTASSIUM,K 4.2 mEq/L (3.5-5.1); PROTEIN TOTAL,TP 7.9 g/dl (6.4-8.2); SODIUM,NA 142 mEq/L (136-145)
[2023-05-12 22:23] LABS: INR 0.99; PROTHROMBIN TIME 10.6 SECONDS (9.7-12.0)
[2023-05-12 22:24] LABS: PTT,PARTIAL THROMBOPLSTIN TIME 20.5 SECONDS (21.7-31.4)
[2023-05-12] MEDS ORDERED: Ondansetron 4 MG/2 ML SDV IVPUSH ONE (22:39)
[2023-05-12 23:20] LABS: CORONAVIRUS COVID-19 NAA NEGATIVE (NEGATIVE); INFLUENZA A NAA NEGATIVE (NEGATIVE); RESPIRATORY SYNCYTIAL VIR NAA NEGATIVE (NEGATIVE)
[2023-05-13 01:36] VITALS: BP 144/78; PULSE 85
== END 2023-05-13 01:20 | disposition home or self-care (01) ==
LOC: JD.ED 21:12
DX: K44.9 Diaphragmatic hernia without obstruction or gangrene (principal); R11.2 Nausea with vomiting, unspecified; R19.7 Diarrhea, unspecified; I11.0 Hypertensive heart disease with heart failure; I50.9 Heart failure, unspecified; K21.9 Gastro-esophageal reflux disease without esophagitis; Z88.2 Allergy status to sulfonamides; Z88.8 Allergy status to other drugs, medicaments and biological substances; Z79.899 Other long term (current) drug therapy; Z90.49 Acquired absence of other specified parts of digestive tract; Z20.822 Contact with and (suspected) exposure to COVID-19
CPT/HCPCS: 0241U; 36415; 74177; 80053; 83605; 85025; 85610; 85730; 86140; 86850; 86900; 86901; 96361; 96374; 96375; 96376; 99285; J2270; J2405; J3490; J7030; Q9967; 99284

== ENCOUNTER 2024-03-16 16:05 | Emergency (ER) | payer MEDICARE, BC ==
[2024-03-16 17:08] LABS: BASOPHILS PERCENT AUTO 0.7 % (0.0-1.0); EOSINOPHILS ABSOLUTE AUTO 0.1 K/mm3 (0.0-0.4); EOSINOPHILS PERCENT AUTO 2.5 % (0.0-6.0); HEMATOCRIT 39.9 % (37.0-47.0); HEMOGLOBIN 12.8 gm/dl (12.0-16.0); IMMATURE GRAN ABSOLUTE AUTO 0.01 K/mm3 (0.00-0.05); IMMATURE GRAN PERCENT AUTO 0.2 % (0.0-0.4); LYMPHOCYTES ABSOLUTE AUTO 1.5 K/mm3 (1.0-4.8); LYMPHOCYTES PERCENT AUTO 33.4 % (24.0-44.0); MEAN CORPUSCULAR HEMOGLOBIN 30.8 pg (28.0-32.0); MEAN CORPUSCULAR HGB CONC 32.1 g/dl (32.0-36.0); MEAN CORPUSCULAR VOLUME 96.1 fl (83.0-99.0); MEAN PLATELET VOLUME 8.4 fl (9.4-12.3); MONOCYTES ABSOLUTE AUTO 0.6 K/mm3 (0.0-0.8); MONOCYTES PERCENT AUTO 12.6 % (0.0-8.0); NEUTROPHILS ABSOLUTE AUTO 2.2 K/mm3 (1.8-7.7); NEUTROPHILS PERCENT AUTO 50.6 % (41.0-71.0); PLATELET COUNT,PLT 181 K/mm3 (150-400); RED BLOOD CELL COUNT 4.15 M/mm3 (4.10-5.30); WHITE BLOOD CELL COUNT,WBC 4.37 K/mm3 (3.9-11.3)
[2024-03-16 17:27] LABS: A/G RATIO 0.9 (1-2); ALBUMIN 3.3 g/dl (3.4-5.0); ANION GAP 9.7 (5-15); BILIRUBIN TOTAL 0.3 mg/dL (0.2-1.0); BUN/CREATININE RATIO 16.7 (14-18); CALCIUM 9.1 mg/dL (8.5-10.1); CREATININE 0.9 mg/dL (0.55-1.02); EST CRCL DRUG DOSING (CG) 44.68 mL/min; POTASSIUM,K 3.7 mEq/L (3.5-5.1); PROTEIN TOTAL,TP 6.8 g/dl (6.4-8.2)
[2024-03-16] MEDS: Sodium Chloride 0.9% 10 ML Syringe FLUSH ONE (18:04)
[2024-03-16] MEDS: Iopamidol 612 MG/ML 100 ML Bottle IVPUSH ONE (18:04)
[2024-03-16 19:20] LABS: APPEARANCE,URINE CLEAR (Clear); BILIRUBIN,URINE NEGATIVE (Negative); COLOR,URINE YELLOW (Yellow); GLUCOSE,URINE NEGATIVE (Negative); KETONES,URINE NEGATIVE (Negative); LEUKOCYTE ESTERASE,URINE TRACE (Negative); NITRITE,URINE NEGATIVE (Negative); OCCULT BLOOD,URINE NEGATIVE (Negative); PROTEIN,URINE NEGATIVE (Negative); UROBILINOGEN,URINE 0.2 (0.2-1.0)
[2024-03-16 19:32] LABS: BACTERIA,URINE FEW /hpf (FEW); MUCUS,URINE FEW /hpf (FEW); RBC,URINE 0-5 /hpf (0-5); SQUAMOUS EPITHELIAL CELLS,UR 0-5 /hpf (0-5)
[2024-03-16 22:00] VITALS: BP 161/92; PULSE 66
== END 2024-03-16 22:00 | disposition home or self-care (01) ==
LOC: JD.ED 16:05
DX: K59.00 Constipation, unspecified (principal); K64.9 Unspecified hemorrhoids; I11.0 Hypertensive heart disease with heart failure; I50.9 Heart failure, unspecified; K21.9 Gastro-esophageal reflux disease without esophagitis; Z90.49 Acquired absence of other specified parts of digestive tract; Z79.899 Other long term (current) drug therapy; Z88.1 Allergy status to other antibiotic agents; Z88.2 Allergy status to sulfonamides
CPT/HCPCS: 36415; 74177; 74177-26; 80053; 81001; 82272; 85025; 86850; 86900; 86901; 87086; 99285; J3490; Q9967